=== PATIENT | male | born 1955 ===

== ENCOUNTER → 2018-08-25 15:23 | Emergency (ER) | payer MEDICAID ==
[~2018-08-25 15:23] MED LIST: Bupivacaine HCl 0.5% PF (10 ml) Inj ONE; Lidocaine 2% MPF (5 ml) Inj ONE; ceFAZolin 1 gm in NS 1 GM/100 ML BAG IVPB ONE
== END | disposition left against medical advice (07) ==
LOC: C.ER 15:23
DX: Z02.89 Encounter for other administrative examinations (principal); R05 Cough